=== PATIENT | female | born 1995 | race Two or more races ===

== ENCOUNTER 2017-09-21 15:14 | Emergency (ER) | payer OTHER ==
[~2017-09-21] VITALS: Ht 157.5 cm; Wt 63.5 kg
[2017-09-21 15:14] VITALS: BP 128/79
== END 2017-09-21 16:29 | disposition home or self-care (01) ==
LOC: ER 15:16
DX: H66.91 Otitis media, unspecified, right ear (principal); J06.9 Acute upper respiratory infection, unspecified; F10.10 Alcohol abuse, uncomplicated
CPT/HCPCS: A4606; Z7610